=== PATIENT | male | born 1980 | race Caucasian/White ===

== ENCOUNTER 2017-12-18 22:36 | Emergency (ER) | payer SELFPAY ==
[2017-12-19] MEDS ORDERED: Ondansetron 4 MG/2 ML SDV IVPUSH ONE (00:40)
[2017-12-19] MEDS ORDERED: Benztropine 1 MG Tab PO STA (00:40)
[2017-12-19] MEDS ORDERED: Haloperidol Lactate 5 MG/ML SDV IM ONE (00:40)
[2017-12-19] MEDS ORDERED: Sodium Chloride 0.9% 1,000 ML IV ONE (00:40)
--- NOTE | 2017-12-19 01:35 | EDM.PDOC ---
ED HPI GENERAL MEDICAL PROBLEM - General Chief Complaint: Headache Stated Complaint: PAIN R SIDE OF FOREHEAD/NUMBNESS Time Seen by Provider: 12/19/17 00:25 Source of Information: Reports: Patient History Limitations: Reports: No Limitations - History of Present Illness INITIAL COMMENTS - FREE TEXT/NARRATIVE: The patient states that he developed a sudden-onset headache, felt in his right forehead, around 22:00. He states that the pain is sharp in character. No visual changes. No photophobia or phonophobia. He states that he feels dizzy, that the right side of his face is numb, and that both of his feet became numb, followed by nausea, followed by numbness of his right upper extremity. The patient states that he occasionally gets mild headaches, but nothing like this. The patient states that he took 6 aspirin (he is not sure of the strength) around 22:00, and now feels somewhat better. The last imaging studies of his head were both a CT scan and MRI on 04/18/1994, when he was in a coma with a skull fracture. The patient does not have a PCP. Frontal Headache Pain Score (Numeric/FACES): 10 - Related Data Allergies Allergy/AdvReac Type Severity Reaction Status Date / Time morphine Allergy Anaphylactic Verified 12/18/17 22:40 Shock Home Meds: Home Meds Rizatriptan Benzoate [Rizatriptan] 1 tab PO Q2H PRN #3 tab.rapdis 12/19/17 [Rx] Past Medical History Musculoskeletal History: Reports: Fracture Neurological History: Reports: Brain Injury - Past Surgical History HEENT Surgical History: Reports: Oral Surgery ([place] teeth extraction) GI Surgical History: Reports: Appendectomy, Hernia, Inguinal (right) Musculoskeletal Surgical History: Reports: ORIF (right forearm) Social & Family History - Tobacco Use Smoking Status *Q: Current Every Day Smoker Years of Tobacco use: 21 Packs/Tins Daily: 1 Packs/Tins Daily Comment: Down from 2 ppd - Alcohol Use Alcohol Use History: Yes Alcohol Use Frequency: Rarely - Recreational Drug Use Recreational Drug Use: No - Living Situation & Occupation Living situation: Reports: , Other (Employee housing) Occupation: Employed ED ROS GENERAL - Review of Systems Review Of Systems: ROS reveals no pertinent complaints other than HPI. - Physical Exam Exam: See Below Exam Limited By: No Limitations General Appearance: Alert, WD/WN, No Apparent Distress (appears uncomfortable) Eye Exam: Bilateral Eye: Normal Inspection Ears: Normal External Exam, Normal Canal, Hearing Grossly Normal, Normal TMs Nose: Normal Inspection, Normal Mucosa, No Blood Throat/Mouth: Normal Inspection, Normal Lips, Normal Teeth, Normal Gums, Normal Oropharynx, Normal Voice, No Airway Compromise Head Exam: Atraumatic, Normocephalic Neck: Normal Inspection, Supple, Non-Tender, Full Range of Motion Respiratory/Chest: No Respiratory Distress, Lungs Clear, Normal Breath Sounds, No Accessory Muscle Use Cardiovascular: Normal Peripheral Pulses, Regular Rate, Rhythm, No Edema, No Gallop, No JVD, No Murmur, No Rub GI/Abdominal: Normal Bowel Sounds, Soft, Non-Tender, No Organomegaly, No Distention, No Abnormal Bruit, No Mass (Male) Exam: Deferred Rectal (Males) Exam: Deferred Neuro Exam (Abbreviated): Alert, Oriented, CN II-XII Intact, Normal Cognition, No Motor/Sensory Deficits Back Exam: Normal Inspection, Full Range of Motion, NT Extremities: Normal Inspection, Normal Range of Motion, No Pedal Edema, Normal Capillary Refill Psychiatric: Normal Affect Skin Exam: Warm, Dry, Intact, Normal Color, No Rash Course - Vital Signs Last Recorded V/S: Last Vital Signs Temp 36.5 C 12/18/17 22:41 Pulse 75 12/18/17 22:41 Resp 18 12/18/17 22:41 BP 151/103 H 12/18/17 22:41 Pulse Ox 98 12/18/17 22:41 - Orders/Labs/Meds Meds: Medications Discontinued Medications Generic Name Dose Route Start Last Admin Trade Name Saima PRN Reason Stop Dose Admin Benztropine Mesylate 1 mg 12/19/17 00:40 12/19/17 00:52 Cogentin PO 12/19/17 00:41 1 mg ONETIME STA Administration Haloperidol Lactate 5 mg 12/19/17 00:40 12/19/17 00:52 Haldol IM 12/19/17 00:41 5 mg ONETIME ONE Administration Sodium Chloride 1,000 mls @ 999 mls/hr 12/19/17 00:40 12/19/17 00:52 Normal Saline IV 12/19/17 01:40 999 mls/hr ONETIME ONE Administration Ondansetron HCl 4 mg 12/19/17 00:40 12/19/17 00:52 Zofran IVPUSH 12/19/17 00:41 4 mg ONETIME ONE Administration - Re-Assessments/Exams Free Text/Narrative Re-Assessment/Exam: 12/19/17 01:34 Following IM Haldol, the patient is reporting near-complete resolution of his headache, indicating that his headache was in most likely migrainous. The results of the CT scan of the head are still pending. 12/19/17 02:17 CT of the head without contrast is read by [facility] as "No acute findings." 12/19/17 02:20 The above was discussed with the patient. He is feeling all better now. I will discharge him home, and e-prescribe Maxalt. I will refer him to Dr. Singh as a PCP. Departure - Departure Time of Disposition: 02:21 Disposition: Home, Self-Care 01 Condition: Good Clinical Impression: Migraine headache - Discharge Information *PRESCRIPTION DRUG MONITORING PROGRAM REVIEWED*: Not Applicable *COPY OF PRESCRIPTION DRUG MONITORING REPORT IN PATIENT CHENG: Not Applicable Prescriptions: Rizatriptan Benzoate [Rizatriptan] 1 tab PO Q2H PRN #3 tab.rapdis PRN Reason: Headache Instructions: Migraine Headache, [id number] Referrals: PCP,None [Primary Care Provider] - Carisa Singh MD [Physician] - Forms: ED Department Discharge, ED Return to Work/School Form Additional Instructions: You were seen in the emergency room for a headache dizziness, and tingling/ numbness to the right side of your face, your right arm, and both feet. Workup in the ER included a CT scan of your head, which returned completely normal. Your symptoms completely resolved after you were given Haldol, confirming that your headache was a migraine. Get plenty of rest tonight in a dark, quiet place. Stay well hydrated. A prescription for the anti-migraine medicine Maxalt (rizatriptan) has been sent to the [facility], [address] [facility]. Dissolve 1 tablet in your mouth, like a lozenge, at the earliest sign of a migraine headache. You may repeat after 2 hours, to a maximum of 3 tablets within 24 hours. Follow-up with Dr. Carisa Singh as a PCP. If the Maxalt works for you, she can prescribe more for you. If any other problems, please do not hesitate to return to the ER.
--- NOTE | 2017-12-19 08:08 | CT ---
Head CT Technique: Multiple axial sections through the brain were obtained. Intravenous contrast was not utilized. Comparison: No prior intracranial imaging. Findings: Ventricles along with basal cisterns and sulci over the convexities are within normal limits for the patient's age. No abnormal parenchymal densities are seen. No evidence of intracranial hemorrhage. No midline shift or mass effect is seen. Bone window settings were reviewed which show no acute calvarial abnormality. Minimal fluid or mucosal thickening is seen inferiorly within left mastoid sinus. Impression: 1. Minimal finding within the left mastoid sinus which is likely incidental. 2. No acute intracranial abnormality is identified on noncontrast head CT study. Diagnostic code #2 I agree with preliminary report issued by [facility] ([facility] preliminary report dictated on 12/19/17, 3:10 AM Central Time)
== END 2017-12-19 02:37 | disposition home or self-care (01) ==
LOC: JD.ED 22:36
DX: G43.909 Migraine, unspecified, not intractable, without status migrainosus (principal); F17.210 Nicotine dependence, cigarettes, uncomplicated; Z88.5 Allergy status to narcotic agent
CPT/HCPCS: 70450; 96361; 96372; 96374; 99284; A9270; J1630; J2405; J7040